=== PATIENT | female | born 1990 | race Caucasian/White ===

== ENCOUNTER → 2019-12-26 | Outpatient (CLI) | payer OTHER | END | disposition home or self-care (01) | LOC: LAB 10:23 | PROVIDERS: ATTEND Obstetrics & Gynecology | DX: Z34.00 Encounter for supervision of normal first pregnancy, unspecified trimester (principal) | CPT/HCPCS: 36415; 84144; 84702 ==

== ENCOUNTER 2019-12-27 15:03 | Inpatient (IN) | payer OTHER, MEDICAID ==
[~2019-12-27] VITALS: Ht 152.4 cm; Wt 93.0 kg
[2019-12-27 16:03] LABS: Basophils # (auto) 0 10 ^3/uL (0-0.2); Basophils % (auto) 0.2 % (0.0-2.0); Eosinophils # (auto) 0.1 10 ^3/uL (0-0.8); Eosinophils % (auto) 1.8 % (0.0-7.0); Hemoglobin 13.7 g/dL (12.2-16.2); Lymphocytes # (auto) 1.5 10 ^3/uL (0.4-5.4); Lymphocytes % (auto) 23.9 % (10.0-50.0); Mean Corpuscular Hemoglobin 31.3 pg (28.0-32.0); Mean Corpuscular Hgb Conc. 34.3 g/dL (32.0-36.0); Mean Corpuscular Volume 91.3 fL (80.0-100.0); Monocytes # (auto) 0.5 10 ^3/uL (0-1.3); Monocytes % (auto) 7.4 % (0.0-12.0); Neutrophils # (auto) 4.3 10 ^3/uL (1.6-8.6); Neutrophils % (auto) 66.7 % (37.0-80.0); Platelet Count (auto) 232 10^3/uL (140-450); Red Blood Cells 4.39 10^6/uL (4.0-5.20); Red Cell Distribution Width 13.3 % (11.8-14.3); White Blood Cell 6.4 10^3/uL (4.4-10.8)
[2019-12-27 16:18] LABS: Albumin 3.8 g/dL (3.4-5.0); BUN/Creatinine Ratio 10.3; Calcium 8.7 mg/dL (8.5-10.1); Potassium 3.7 mmol/L (3.5-5.1)
[2019-12-27 16:20] LABS: Bilirubin, Total 0.9 mg/dL (0.2-1.0); Total Protein 7.5 g/dL (6.4-8.2)
[2019-12-27 16:29] LABS: Urine Bacteria NONE SEEN /hpf (None Seen); Urine Blood 3+ /uL (Negative); Urine Mucus FEW (None Seen); Urine Specific Gravity 1.018 (1.001-1.035); Urine WBC 1 /hpf (0 - 5)
[2019-12-27] MEDS ORDERED: ONDANSETRON HCL 4 MG/2 ML VIAL IV PRN (18:00)
[2019-12-27] MEDS ORDERED: HYDROmorphone HCL 2 MG/ML VL IV PRN (18:00)
[2019-12-27 19:40] VITALS: BP 138/91
--- NOTE | 2019-12-27 20:00 | NUR ---
MS admit from [facility] admitted to tele/MS after SBAR received. Patient oriented to Ronit Peterson primary RN, unit, room, bed, and unit policies regarding patient care and visiting hours. Patient weighed by bedscale and encouraged to call if they need something. All questions and concerns addressed, patient verbalized understanding.
[2019-12-27 23:07] VITALS: BP 138/91
--- NOTE | 2019-12-27 23:30 | NUR ---
Consents to be signed for procedure on 12/27. Patient has no questions at this time and talked to Doctor before being admitted about procedure. Patient signed consents, stating she had no questions to be answered and felt comfortable signing.
--- NOTE | 2019-12-28 04:00 | NUR ---
CHG bath done. Patient prepped for surgery.
[2019-12-28 05:34] VITALS: BP 120/72
[2019-12-28 06:11] LABS: Basophils # (auto) 0 10 ^3/uL (0-0.2); Basophils % (auto) 0.2 % (0.0-2.0); Eosinophils # (auto) 0.1 10 ^3/uL (0-0.8); Eosinophils % (auto) 0.9 % (0.0-7.0); Hematocrit 39.5 % (36.0-46.0); Hemoglobin 13.5 g/dL (12.2-16.2); Lymphocytes # (auto) 1.8 10 ^3/uL (0.4-5.4); Lymphocytes % (auto) 27.1 % (10.0-50.0); Mean Corpuscular Hemoglobin 31.2 pg (28.0-32.0); Mean Corpuscular Hgb Conc. 34.1 g/dL (32.0-36.0); Mean Corpuscular Volume 91.7 fL (80.0-100.0); Monocytes # (auto) 0.4 10 ^3/uL (0-1.3); Monocytes % (auto) 6.7 % (0.0-12.0); Neutrophils # (auto) 4.4 10 ^3/uL (1.6-8.6); Neutrophils % (auto) 65.1 % (37.0-80.0); Platelet Count (auto) 206 10^3/uL (140-450); Red Blood Cells 4.31 10^6/uL (4.0-5.20); Red Cell Distribution Width 13.1 % (11.8-14.3); White Blood Cell 6.7 10^3/uL (4.4-10.8)
[2019-12-28 06:26] LABS: INR 1.01 (0.9-1.15); Partial Thromboplastin Time 28.3 sec (23.64-32.05)
[2019-12-28 08:00] VITALS: BP 129/76
--- NOTE | 2019-12-28 08:15 | NUR ---
Opening Shift Note Assumed care of patient, awake and alert. No S/S of distress/SOB or pain. Instructed on POC and to call for assist PRN. Bed at lowest locked position and call light withinreach. Will continue to monitor for changes Q1hr and PRN.
--- NOTE | 2019-12-28 08:32 | NUR ---
Dr. Rodriguez at bedside.
[2019-12-28] MEDS ORDERED: ACETAMINOPHEN 325 MG TAB PO PRN (08:45)
[2019-12-28 09:50] VITALS: BP 129/76
[2019-12-28 11:14] VITALS: BP 129/76
[2019-12-28 12:59] VITALS: BP 112/70
--- NOTE | 2019-12-28 13:38 | NUR ---
Patient back from Pre-op Per Laverne BLOCK in pre-op, patient refused procedure.
[2019-12-28 14:53] VITALS: BP 112/70
--- NOTE | 2019-12-28 16:30 | NUR ---
Discharge instructions given as ordered. Encourage to follow up with PMD as instructed. All questions and concerns addressed. Patient verbalized understanding. Medication reconciliation form completed and copy given to patient. IV removed with catheter intact, pressure dressing applied. Patient taken to vehicle via wheelchair with all personal belongings, accompanied by staff . No distress noted at time of departure. Patient educated/informed to return back to the nearest ER department for further evaluation if condition does not improve or worsens.
== END 2019-12-28 16:30 | disposition home or self-care (01) | DRG 833 ==
LOC: ER 15:03 → OVERFLOW 15:04 → WEST WING 19:20
PROVIDERS: ADMIT Specialist; ATTEND Specialist
DX: O00.80 Other ectopic pregnancy without intrauterine pregnancy (principal); N83.292 Other ovarian cyst, left side; Z91.048 Other nonmedicinal substance allergy status
CPT/HCPCS: 36415; 76801; 80053; 81001; 84702; 85025; 85610; 85730; 86850; 86900; 86901; G0378

== ENCOUNTER 2019-12-31 10:42 | Emergency (ER) | payer OTHER, MEDICAID ==
[~2019-12-31] VITALS: Ht 162.6 cm; Wt 91.2 kg
[2019-12-31 11:30] VITALS: BP 144/66
== END 2019-12-31 12:15 | disposition home or self-care (01) ==
LOC: ER 10:42
DX: O20.0 Threatened abortion (principal); Z3A.01 Less than 8 weeks gestation of pregnancy
CPT/HCPCS: 36415; 84702

== ENCOUNTER → 2020-01-02 | Outpatient (CLI) | payer OTHER | END | disposition home or self-care (01) | LOC: LAB 11:26 | PROVIDERS: ATTEND Obstetrics & Gynecology | DX: Z34.00 Encounter for supervision of normal first pregnancy, unspecified trimester (principal); Z3A.00 Weeks of gestation of pregnancy not specified | CPT/HCPCS: 36415; 81025; 84702 ==

== ENCOUNTER → 2020-01-04 | Outpatient (CLI) | payer OTHER | END | disposition home or self-care (01) | LOC: LAB 12:19 | PROVIDERS: ATTEND Specialist | DX: Z32.00 Encounter for pregnancy test, result unknown (principal) | CPT/HCPCS: 36415; 84702 ==

== ENCOUNTER 2020-01-11 07:39 | Day surgery (SDC) | payer OTHER, MEDICAID ==
[2020-01-08 11:15] LABS: Basophils # (auto) 0 10 ^3/uL (0-0.2); Basophils % (auto) 0.3 % (0.0-2.0); Eosinophils # (auto) 0.1 10 ^3/uL (0-0.8); Eosinophils % (auto) 1.6 % (0.0-7.0); Hemoglobin 13.2 g/dL (12.2-16.2); Lymphocytes # (auto) 1.4 10 ^3/uL (0.4-5.4); Lymphocytes % (auto) 26.8 % (10.0-50.0); Mean Corpuscular Hemoglobin 30.7 pg (28.0-32.0); Mean Corpuscular Hgb Conc. 33.7 g/dL (32.0-36.0); Mean Corpuscular Volume 90.9 fL (80.0-100.0); Monocytes # (auto) 0.3 10 ^3/uL (0-1.3); Monocytes % (auto) 6.8 % (0.0-12.0); Neutrophils # (auto) 3.3 10 ^3/uL (1.6-8.6); Neutrophils % (auto) 64.5 % (37.0-80.0); Platelet Count (auto) 201 10^3/uL (140-450); Red Blood Cells 4.29 10^6/uL (4.0-5.20); Red Cell Distribution Width 12.9 % (11.8-14.3); White Blood Cell 5.1 10^3/uL (4.4-10.8)
[2020-01-08 11:29] LABS: INR 0.98 (0.9-1.15); Partial Thromboplastin Time 28.8 sec (23.64-32.05)
[2020-01-08 11:39] LABS: Albumin 3.6 g/dL (3.4-5.0); Calcium 8.6 mg/dL (8.5-10.1); Potassium 3.8 mmol/L (3.5-5.1); Urine Bacteria NONE SEEN /hpf (None Seen); Urine Blood 3+ /uL (Negative); Urine Mucus FEW (None Seen); Urine Specific Gravity 1.025 (1.001-1.035); Urine WBC 5 /hpf (0 - 5)
[2020-01-08 11:43] LABS: BUN/Creatinine Ratio 10.1; Bilirubin, Total 0.8 mg/dL (0.2-1.0); Total Protein 7.4 g/dL (6.4-8.2)
[~2020-01-11] VITALS: Ht 162.6 cm; Wt 93.4 kg
[2020-01-11] MEDS ORDERED: ceFAZolin 1GM/50ML 50 ML IV ONE (08:47)
[2020-01-11] MEDS ORDERED: SUCCINYLCHOLINE CHLORIDE 20 MG/ML 10ML VIAL IV ONE (09:00)
[2020-01-11] MEDS ORDERED: MIDAZOLAM HCL 1MG/1ML-2 ML VIAL ONE (09:10)
[2020-01-11] MEDS ORDERED: ROCURONIUM 10MG/ML 10ML VIAL IV ONE (09:10)
[2020-01-11] MEDS ORDERED: ONDANSETRON HCL 4 MG/2 ML VIAL ONE (09:10)
[2020-01-11] MEDS ORDERED: MEPERIDINE HCL (25 MG/ML) 1ML VIAL ONE (09:10)
[2020-01-11] MEDS ORDERED: SODIUM CHLORIDE LOCK 10 ML ONE (09:10)
[2020-01-11] MEDS ORDERED: fentaNYL CITRATE 100 MCG/2 ML VL ONE (09:10)
[2020-01-11] MEDS ORDERED: PROPOFOL 10 MG/ML 20 ML IV ONE (09:10)
[2020-01-11] MEDS ORDERED: KETOROLAC TROMETH 60MG/2ML VIAL ONE (09:59)
[2020-01-11] MEDS ORDERED: GLYCOPYRROLATE 0.2 MG/ML 1ML VIAL ONE (09:59)
[2020-01-11] MEDS ORDERED: NEOSTIGMINE 1 MG/ML INJ (10mg/10ML VIAL) ONE (09:59)
[2020-01-11] MEDS ORDERED: DOXAPRAM HCL 20 MG/ML 20ML VIAL INJ IV ONE (10:02)
[2020-01-11] MEDS ORDERED: METOCLOPRAMIDE HCL 5MG/ml INJ 2ml VIAL IV PRN (10:45)
[2020-01-11] MEDS ORDERED: HYDROmorphone HCL 2 MG/ML VL IV PRN (10:45)
[2020-01-11] MEDS ORDERED: fentaNYL CITRATE 100 MCG/2 ML VL IV PRN (10:45)
[2020-01-11] MEDS ORDERED: MORPHINE SULFATE 4 MG/ML SYR/VIAL IV PRN (10:45)
[2020-01-11] MEDS ORDERED: LACTATED RINGER'S 1,000 ML IV SCH (11:06)
[2020-01-11] MEDS ORDERED: ONDANSETRON HCL 4 MG/2 ML VIAL IV PRN (11:15)
[2020-01-11 11:48] VITALS: BP 127/79
== END 2020-01-11 12:00 | disposition home or self-care (01) ==
LOC: SUR 07:39
PROVIDERS: ATTEND Specialist
DX: O00.90 Unspecified ectopic pregnancy without intrauterine pregnancy (principal); N83.202 Unspecified ovarian cyst, left side; E66.9 Obesity, unspecified; D64.9 Anemia, unspecified; Z68.36 Body mass index [BMI] 36.0-36.9, adult; Z88.0 Allergy status to penicillin; Z79.899 Other long term (current) drug therapy; Z98.890 Other specified postprocedural states
CPT/HCPCS: 36415; 49320; 59899; 80053; 81001; 84702; 85025; 85610; 85730; 86850; 86900; 86901; 87086; 88305; J0330; J0690; J1885; J2175; J2250; J2405; J2704; J3010; J7030

== ENCOUNTER 2020-01-21 12:08 | Emergency (ER) | payer OTHER, MEDICAID ==
[~2020-01-21] VITALS: Ht 162.6 cm; Wt 92.1 kg
[2020-01-21 14:29] VITALS: BP 129/70
== END 2020-01-21 15:27 | disposition home or self-care (01) ==
LOC: ER 12:08
DX: R79.9 Abnormal finding of blood chemistry, unspecified (principal); R51 Headache
CPT/HCPCS: 36415; 84702